=== PATIENT | female | born 1940 | race Caucasian/White ===

== ENCOUNTER 2016-04-21 11:30 | Day surgery (SDC) | payer MEDICARE, OTHER ==
[2016-04-21] MEDS ORDERED: LACTATED RINGERS 500 ML IV ONE (11:35)
[2016-04-21] MEDS ORDERED: CYCLOPENTOLATE 1% OPHTH DROPS 2 ML OPTH ONE (11:50)
[2016-04-21] MEDS ORDERED: KETOROLAC 0.45% OPHTH DROPS OPTH ONE (11:50)
[2016-04-21] MEDS ORDERED: TROPICAMIDE 1% OPHTH 2 ML DROPS OPTH ONE (11:50)
[2016-04-21] MEDS ORDERED: MIDAZOLAM 2 MG/2 ML VIAL IVP ONE (12:00)
[2016-04-21] MEDS ORDERED: PROPARACAINE 0.5% OPHTH DROPS 15 ML OPTH ONE (12:26)
[2016-04-21] MEDS ORDERED: CHONDR SULF/HYALURONATE SYRINGE IO ONE (12:27)
[2016-04-21] MEDS ORDERED: TETRACAINE OPHTH DROPS 2 ML OPTH ONE (12:27)
[2016-04-21] MEDS ORDERED: BSS/LIDOCAINE/EPINEPHRINE 1 ML SYRINGE IO ONE (12:27)
[2016-04-21] MEDS ORDERED: BRIMONIDINE 0.2% OPHTH DROPS 5 ML OPTH ONE (12:27)
[2016-04-21] MEDS ORDERED: EPINEPHrine 1 MG/ML AMP IO ONE (12:27)
[2016-04-21] MEDS ORDERED: levoFLOXacin 0.5% OPHTH DROPS 5 ML OPTH ONE (12:27)
== END 2016-04-21 11:31 | disposition home or self-care (01) ==
PROC: 08RJ3JZ Replacement of Right Lens with Synthetic Substitute, Percutaneous Approach (ICD-10-PCS; principal; 2016-04-21 12:40)
DX: H26.9 Unspecified cataract (principal); I10 Essential (primary) hypertension; E03.9 Hypothyroidism, unspecified; Z86.73 Personal history of transient ischemic attack (TIA), and cerebral infarction without residual deficits
CPT/HCPCS: 66984; V2632

== ENCOUNTER 2016-05-12 07:56 | Day surgery (SDC) | payer MEDICARE, OTHER ==
[2016-05-12] MEDS ORDERED: TROPICAMIDE 1% OPHTH 2 ML DROPS OPTH ONE (08:40)
[2016-05-12] MEDS ORDERED: CYCLOPENTOLATE 1% OPHTH DROPS 2 ML OPTH ONE (08:40)
[2016-05-12] MEDS ORDERED: KETOROLAC 0.45% OPHTH DROPS OPTH ONE (08:40)
[2016-05-12] MEDS ORDERED: fentaNYL 100 MCG/2 ML VIAL IVP ONE (10:12)
[2016-05-12] MEDS ORDERED: MIDAZOLAM 2 MG/2 ML VIAL IVP ONE ×2 (10:12→10:43)
[2016-05-12] MEDS ORDERED: PROPOFOL 200 MG/20 ML VIAL IVP ONE ×2 (10:12→10:43)
[2016-05-12] MEDS ORDERED: LACTATED RINGERS 500 ML IV ONE (10:34)
[2016-05-12] MEDS ORDERED: levoFLOXacin 0.5% OPHTH DROPS 5 ML OPTH ONE (10:36)
[2016-05-12] MEDS ORDERED: PROPARACAINE 0.5% OPHTH DROPS 15 ML OPTH ONE (10:36)
[2016-05-12] MEDS ORDERED: BRIMONIDINE 0.2% OPHTH DROPS 5 ML OPTH ONE (10:36)
[2016-05-12] MEDS ORDERED: TETRACAINE OPHTH DROPS 2 ML OPTH ONE (10:36)
[2016-05-12] MEDS ORDERED: EPINEPHrine 1 MG/ML AMP IO ONE (10:36)
[2016-05-12] MEDS ORDERED: BSS/LIDOCAINE/EPINEPHRINE 1 ML SYRINGE IO ONE ×2 (10:36)
[2016-05-12] MEDS ORDERED: CHONDR SULF/HYALURONATE SYRINGE IO ONE (10:36)
== END 2016-05-12 07:57 | disposition home or self-care (01) ==
PROC: 08RK3JZ Replacement of Left Lens with Synthetic Substitute, Percutaneous Approach (ICD-10-PCS; principal; 2016-05-12 09:10)
DX: H26.9 Unspecified cataract (principal); E07.9 Disorder of thyroid, unspecified; H40.9 Unspecified glaucoma
CPT/HCPCS: 66984; V2632

== ENCOUNTER 2019-02-24 13:27 | Outpatient (CLI) | payer MEDICARE, OTHER ==
[2019-02-24 13:53] LABS: CALCIUM 9.5 mg/dL (8.5-10.3); CREATININE 0.7 mg/dL (0.4-1.0)
== END 2019-02-24 13:28 | disposition home or self-care (01) ==
LOC: LAB 13:27
PROVIDERS: ATTEND Internal Medicine Endocrinology, Diabetes & Metabolism
DX: M81.0 Age-related osteoporosis without current pathological fracture (principal)
CPT/HCPCS: 36415; 80048